=== PATIENT | male | born 1965 | race Caucasian/White ===

== ENCOUNTER 2018-09-13 20:58 | Emergency (ER) | payer MEDICAID ==
[~2018-09-13] VITALS: Ht 167.6 cm; Wt 77.3 kg
[~2018-09-13 20:58] MED LIST: NO MEDS
[2018-09-13 21:15] VITALS: BP 148/89
[2018-09-13] MEDS ORDERED: CLINDAMYCIN HCL 150 MG CAPSULE PO ONE (21:45)
[2018-09-13] MEDS ORDERED: HYDROCODONE/ACETAMINOPHEN 5-325 MG TABLET PO ONE (21:45)
== END 2018-09-13 22:01 | disposition home or self-care (01) ==
LOC: EMS 20:59
DX: K02.9 Dental caries, unspecified (principal); F17.210 Nicotine dependence, cigarettes, uncomplicated
CPT/HCPCS: 99406

== ENCOUNTER 2021-07-18 06:35 | Emergency (ER) | payer MEDICAID ==
[~2021-07-18] VITALS: Ht 165.1 cm; Wt 90.0 kg
[2021-07-18 06:47] VITALS: BP 146/91
[2021-07-18] MEDS ORDERED: KETOROLAC TROMETHAMINE 60 MG/2 ML VIAL IM ONE (07:15)
[2021-07-18] MEDS ORDERED: CYCLOBENZAPRINE HCL 10 MG TABLET PO ONE (07:15)
== END 2021-07-18 07:59 | disposition home or self-care (01) ==
LOC: EMS 06:35
DX: M25.511 Pain in right shoulder (principal); V43.62XA Car passenger injured in collision with other type car in traffic accident, initial encounter; Y93.89 Activity, other specified; Y92.488 Other paved roadways as the place of occurrence of the external cause; Y99.8 Other external cause status
CPT/HCPCS: 96372; 99283

== ENCOUNTER 2025-05-06 06:27 | Emergency (ER) | payer OTHER | END 2025-05-06 06:57 | disposition left against medical advice (07) | LOC: EMS 06:32 | DX: S61.419A Laceration without foreign body of unspecified hand, initial encounter (principal); Z53.21 Procedure and treatment not carried out due to patient leaving prior to being seen by health care provider; X58.XXXA Exposure to other specified factors, initial encounter; Y93.89 Activity, other specified; Y92.89 Other specified places as the place of occurrence of the external cause; Y99.9 Unspecified external cause status ==